=== PATIENT | female | born 1940 | race Caucasian/White ===

== ENCOUNTER 2019-03-28 10:41 | Outpatient (CLI) | payer MEDICARE, BC | END 2019-03-28 10:42 | disposition critical access hospital (66) | LOC: EMS 10:41 | PROVIDERS: ATTEND Surgery | DX: R41.0 Disorientation, unspecified (principal); R42 Dizziness and giddiness; R47.81 Slurred speech | CPT/HCPCS: A0425; A0429 ==

== ENCOUNTER 2019-03-28 11:04 | Observation (INO) | payer MEDICARE, BC ==
[2019-03-28] MEDS ORDERED: SODIUM CHLORIDE 0.9% 1,000 ML IV ONE (11:15)
--- NOTE | 2019-03-28 11:17 | ED Physician Documentation ---
PD HPI FOCAL NEURO - Stated complaint Stated Complaint: STROKE SX - History obtained from History obtained from: Patient, EMS - History of Present Illness Timing - onset: How many hours ago (2 1/2), Today (at about 8:30-8:45 am. [place] okay when first got out of bed. She noticed the development of trouble speaking along with feeling off balance and listing to the right. She did not notice any facial droop or one-sided weakness. She did not have any headache or chest pain. She is visiting from [facility] to stay with a friend of hers who just had hip surgery. Her friend noted that she was having some nonsensical speech. This actually lasted for a couple of hours until some other friends came by and felt that she should seek medical attention. EMS came and did notice her listing to one side sitting but did not have focal weakness. She did have some aphasic type speech that was only mild at the time of their arrival and improved on route to the hospital. So duration of symptoms was approximately 2 hours.) Timing - details: Abrupt onset (She states she felt okay on awakening this morning. She was helping take care of her friend who is just come out from hip surgery. She did not sleep well last night. She states she had a couple coffee this morning with a little bit of [employer] [place] cream in it. She did not feel that she had a significant amount of alcohol. She had the onset of trouble s peaking and balance. She denied any headache or chest pain with it.), Now resolved (resolved enroute to ER.) Severity of deficit: Moderate Weakness: No: Face, Arm, Leg Numbness: No: Face, Arm, Leg Associated symptoms: No: Headache, Nausea / vomiting, Head injury Contributing factors: negative: Anticoagulated, Atrial fibrillation Baseline status: positive: A&OX3, ambulatory, indep Similar symptoms before: Has not had sx before Recently seen: Not recently seen Review of Systems Constitutional: denies: Fever, Chills Nose: denies: Rhinorrhea / runny nose, Congestion Throat: denies: Sore throat Cardiac: denies: Chest pain / pressure, Palpitations Respiratory: denies: Dyspnea, Cough GI: denies: Nausea, Vomiting, Diarrhea Musculoskeletal: denies: Neck pain, Back pain Neurologic: reports: Difficulty speaking, Confused. denies: Focal weakness, Numbness, Near syncope, Syncope, Headache, Head injury Psychiatric: denies: Anxiety Endocrine: denies: Easy bruising / bleeding Immunocompromised: denies: Immunocompromised PD PAST MEDICAL HISTORY - Past Medical History Cardiovascular: Hypertension Respiratory: None Neuro: None, Peripheral neuropathy Endocrine/Autoimmune: None - Present Medications Home Medications: Ambulatory Orders Medication Instructions Recorded Confirmed Aspirin 81 mg PO DAILY 03/28/19 03/28/19 Gabapentin 0 mg DAILY 03/28/19 03/28/19 Metoprolol Tartrate 0 mg BID 03/28/19 03/28/19 Pramipexole [Mirapex] 0 mg DAILY 03/28/19 03/28/19 Simvastatin 0 mg DAILY 03/28/19 03/28/19 - Allergies Allergies/Adverse Reactions: Allergies Allergy/AdvReac Type Severity Reaction Status Date / Time tape Allergy Rash Uncoded 03/28/19 12:03 - Family History Family history: denies: Venous thromboembolism, CVA, Cerebral aneurysm PD ED PE NORMAL - Vitals Vital signs reviewed: Yes - General General: Alert and oriented X 3, No acute distress, Well developed/nourished - HEENT HEENT: Atraumatic, PERRL, EOMI, Moist mucous membranes, Pharynx benign - Neck Neck: Supple, no meningeal sign, No adenopathy, No bruit - Cardiac Cardiac: RRR, No murmur - Respiratory Respiratory: Clear bilaterally - Abdomen Abdomen: Soft, Non tender - Female Female : Deferred - Rectal Rectal: Deferred - Back Back: No CVA TTP - Derm Derm: Normal color, Warm and dry - Extremities Extremities: No tenderness to palpate, Normal ROM s pain, No edema, No calf tenderness / cord - Neuro Neuro: Alert and oriented X 3, No motor deficit, Normal speech Eye Opening: Spontaneous Motor: Obeys Commands Verbal: Oriented GCS Score: 15 NIHSS - Level of Consciousness Level of consciousness: (0) Alert, Keenly responsive LOC Questions: (0) Answers both Q's correct LOC Commands: (0) Performs both correctly - Gaze Best Gaze: (0) Normal - Visual Visual: (0) No loss - Facial Palsy Facial Palsy: (0) Normal, symmetrical movement - Motor Arms (both separate) Motor Arm (right): (0) No drift Motor Arm (left): (0) No drift - Motor Legs (both separate) Motor Leg (right): (0) No drift Motor Leg (left): (0) No drift - Limb Ataxia Limb Ataxia: (0) Absent - Sensory Sensory: (0) Normal - Best Language Best Language: (0) No aphasia - Dysarthria Dysarthria: (0) Normal - Extinction and Inattention (formally neg Extinction and inattention: (0) No abnormality - Total Score/Results Total Score/Result: 0 Results - Vitals Vitals: Vital Signs - 24 hr 03/28/19 03/28/19 11:04 13:24 Heart Rate 73 69 Respiratory 16 18 Rate Blood Pressure 120/62 132/78 H O2 Saturation 96 100 Oxygen O2 Source Room air - EKG (time done) 12:09 Rate: Rate (enter#) (65) Rhythm: NSR [place]: Normal Intervals: Normal MS QRS: Normal Ischemia: Normal ST segments. No: ST elevation c/w ischemia, ST depression - Labs Labs: Laboratory Tests 03/28/19 03/28/19 03/28/19 11:14 11:14 11:14 WBC 5.3 RBC 3.83 L Hgb 12.3 Hct 37.5 MCV 97.9 MCH 32.1 H MCHC 32.8 RDW 12.6 Plt Count 229 MPV 10.3 Neut # (Auto) 3.9 Lymph # (Auto) 0.7 L [place] # (Auto) 0.6 Eos # (Auto) 0.1 Baso # (Auto) 0.1 Absolute Nucleated RBC 0.00 Nucleated RBC % 0.0 Sodium 139 Potassium 3.8 Chloride 99 L Carbon Dioxide 28 Anion Gap 12.0 BUN 36 H Creatinine 1.3 H Estimated GFR (MDRD) 40 L Glucose 155 H Calcium 9.2 Magnesium 2.4 Total Bilirubin 0.7 AST 26 ALT 17 Alkaline Phosphatase 83 Troponin I High Sens 11.3 Total Protein 7.1 Albumin 3.9 Globulin 3.2 Albumin/Globulin Ratio 1.2 Triglycerides Cholesterol LDL Cholesterol, Calc VLDL Cholesterol HDL Cholesterol LDL/HDL Ratio Cholesterol/HDL Ratio Lipase 44 Ethyl Alcohol < 5.0 03/28/19 11:14 WBC RBC Hgb Hct MCV MCH MCHC RDW Plt Count MPV Neut # (Auto) Lymph # (Auto) [place] # (Auto) Eos # (Auto) Baso # (Auto) Absolute Nucleated RBC Nucleated RBC % Sodium Potassium Chloride Carbon Dioxide Anion Gap BUN Creatinine Estimated GFR (MDRD) Glucose Calcium Magnesium Total Bilirubin AST ALT Alkaline Phosphatase Troponin I High Sens Total Protein Albumin Globulin Albumin/Globulin Ratio Triglycerides 102 Cholesterol 158 LDL Cholesterol, Calc 83 VLDL Cholesterol 20 HDL Cholesterol 55 L LDL/HDL Ratio 1.5 Cholesterol/HDL Ratio 2.9 Lipase Ethyl Alcohol - Rads (name of study) head CT Radiology: Prelim report reviewed, Discussed with rads (normal), See rad report head and neck CT-A Radiology: Prelim report reviewed, Discussed with rads (no blood flow deficits nor significant stenoses. ), See rad report PD MEDICAL DECISION MAKING - ED course Complexity details: reviewed results, re-evaluated patient, considered differential (2 hours of aphasia and ataxia with symptoms resolving on route by EMS. Concern for TIA versus other cerebrovascular disorders versus mass-effect or mimics such as MS. She has a normal sinus rhythm. Will check blood tests as well.), d/w patient, d/w international travel consultant (Hospitalist) Departure - Departure Disposition: ED Place in Observation Clinical Impression: TIA (transient ischemic attack), Aphasia, Ataxia Condition: Stable Record reviewed to determine appropriate education?: Yes
[2019-03-28 11:24] LABS: BASOPHILS # (AUTO) 0.1 10^3/uL (0.0-0.1); BASOPHILS % (AUTO) 1.1 %; EOSINOPHILS # (AUTO) 0.1 10^3/uL (0.0-0.7); EOSINOPHILS % (AUTO) 2.1 %; HGB - HEMOGLOBIN 12.3 g/dL (12.0-16.0); LYMPHOCYTES # (AUTO) 0.7 10^3/uL (1.5-3.5); LYMPHOCYTES % (AUTO) 12.4 %; MEAN CORPUSCULAR HEMOGLOBIN 32.1 pg (27.0-31.0); MEAN CORPUSCULAR HGB CONC 32.8 g/dL (32.0-36.0); MEAN CORPUSCULAR VOLUME 97.9 fL (81.0-99.0); MEAN PLATELET VOLUME 10.3 fL (7.9-10.8); MONOCYTES # (AUTO) 0.6 10^3/uL (0.0-1.0); NEUTROPHILS # (AUTO) 3.9 10^3/uL (1.5-6.6); NEUTROPHILS % (AUTO) 72.2 %; PLT - PLATELET COUNT 229 10^3/uL (130-450); RED BLOOD COUNT 3.83 10^6/uL (4.20-5.40); RED CELL DISTRIBUTION WIDTH 12.6 % (12.0-15.0); WHITE BLOOD COUNT 5.3 x10^3/uL (4.8-10.8)
--- NOTE | 2019-03-28 11:36 | CT Report ---
Reason: slurred speech on set 8:30 am Procedure Date: 03/28/2019 Accession Number: [id number] / [id number] Procedure: CT - Head W/O Stroke Protocol CPT Code: Final Report FULL RESULT: EXAM: CT HEAD EXAM DATE: 03/28/2019 11:25 AM. CLINICAL HISTORY: Slurred speech onset 8:30 am. COMPARISON: None. TECHNIQUE: Multiaxial CT images were obtained from the foramen magnum to the vertex. Reformats: Sagittal and coronal. IV contrast: None. In accordance with CT protocol optimization, one or more of the following dose reduction techniques were utilized for this exam: automated exposure control, adjustment of mA and/or KV based on patient size, or use of iterative reconstructive technique. FINDINGS: Parenchyma: No intraparenchymal hemorrhage. No evidence of mass, midline shift, or CT findings of acute infarction. Vazquez-white differentiation is distinct. Age-related atrophy is seen. Patchy white matter hypodensity is noted throughout the cerebral hemispheres. Extraaxial Spaces: Normal for age. No subdural or epidural collections identified. Ventricles: Mild ventriculomegaly is seen with a colpocephaly pattern. No acute hydrocephalus. No intraventricular hemorrhage. Sinuses and Orbits: Imaged paranasal sinuses, orbits, and mastoids show no significant abnormality. Mild mucosal thickening is seen involving inferior right mastoid air cells. Note is made of bilateral lens removal. Bones: No evidence of fracture or calvarial defect. Other: Mild vascular calcification is seen involving intracranial ICA. IMPRESSION: 1. No acute intracranial abnormality. 2. Senescent change. Age-related volume loss. Patchy white matter hypodensity is noted. This is nonspecific. This can be seen secondary to small vessel ischemic change. 3. Mild ventriculomegaly. Findings may be secondary to central atrophy or normal pressure hydrocephalus. RADIA The critical test notification system was initiated by Dr. Mannie Calloway at 11:31 AM on 03/28/2019. The above critical test findings were discussed with Dr. Nikhil Irene by Dr. Mannie Calloway at 11:35 AM on 03/28/2019.
[2019-03-28 11:37] LABS: ALBUMIN 3.9 g/dL (3.2-5.5); ALBUMIN/GLOBULIN RATIO 1.2 (1.0-2.2); ALKALINE PHOSPHATASE 83 IU/L (42-121); ALT ALANINE AMINOTRANSFERASE 17 IU/L (10-60); AST ASPARTATE AMINOTRANSFERASE 26 IU/L (10-42); BILIRUBIN,TOTAL 0.7 mg/dL (0.2-1.0); BUN - BLOOD UREA NITROGEN 36 mg/dL (6-20); CALCIUM 9.2 mg/dL (8.5-10.3); CARBON DIOXIDE - CO2 28 mmol/L (21-32); CHLORIDE 99 mmol/L (101-111); CREATININE 1.3 mg/dL (0.4-1.0); GFR - MDRD 40 (>89); GLUCOSE 155 mg/dL (70-100); LIPASE 44 U/L (22-51); MAGNESIUM 2.4 mg/dL (1.7-2.8); SODIUM 139 mmol/L (135-145); TOTAL PROTEIN 7.1 g/dL (6.7-8.2)
[2019-03-28] MEDS ORDERED: IOVERSOL 320 100 ML VIAL IVP ONE ×2 (12:00→12:59)
[2019-03-28] MEDS ORDERED: ONDANSETRON 4 MG/2 ML VIAL IVP PRN (13:27)
[2019-03-28] MEDS ORDERED: SODIUM CHLORIDE FLUSH 0.9% 10 ML SYRINGE IVP PRN (13:27)
[2019-03-28] MEDS ORDERED: ACETAMINOPHEN 325 MG TABLET PO PRN (13:27)
--- NOTE | 2019-03-28 13:34 | CT Report ---
Reason: L sided facial droop Procedure Date: 03/28/2019 Accession Number: [id number] / [id number] Procedure: CT - ANGIO HEAD W/WO CPT Code: Final Report FULL RESULT: EXAM: CT ANGIOGRAM HEAD AND NECK. CT SCAN HEAD WITH CONTRAST. EXAM DATE: 03/28/2019 11:43 AM. Images are timed 1137 hours. CLINICAL HISTORY: L sided facial droop. COMPARISON: HEAD W/O STROKE PROTOCOL 03/28/2019 11:25 AM. TECHNIQUE: Routine axial helical CTA imaging was performed from the aortic arch through the [place] of [place]. Routine axial CT imaging of the head was performed following contrast administration. Reconstructions: Routine multiplanar 3D MIP reconstructions. IV contrast: OPTI 320 80 mL. NASCET Criteria are used for stenosis measurements. In accordance with CT protocol optimization, one or more of the following dose reduction techniques were utilized for this exam: automated exposure control, adjustment of mA and/or KV based on patient size, or use of iterative reconstructive technique. FINDINGS: CT SCAN HEAD POSTCONTRAST: (See report of noncontrast CT scan of the head performed same time.) No abnormal intracranial enhancement. CT ANGIOGRAM EXTRACRANIAL CIRCULATION: Mild tortuosity with moderate atherosclerotic calcification is seen involving the aortic arch and great vessels off the arch. Normal three-vessel branching is seen. The great vessels are patent. Mild, 40%, stenosis is seen at the origin of the left subclavian artery. Right Carotid: The common carotid, internal carotid, and external carotid arteries are widely patent. No dissection. Mild intimal thickening is seen at the CCA bifurcation. Atherosclerotic calcification is seen in the distal bulbar segment of the ICA. Moderate, 60%, stenosis. Left Carotid: The common carotid, internal carotid, and external carotid arteries are widely patent. No dissection. Mild atherosclerotic intimal thickening and calcification is seen at the CCA bifurcation. No stenosis. Vertebrals: The vertebral arteries are codominant. The vertebrobasilar system shows no stenosis, dissection, aneurysm, or significant atherosclerotic disease. CT ANGIOGRAM INTRACRANIAL CIRCULATION: Unremarkable. No stenoses or aneurysms of the visualized vessels. No large vessel occlusion. Tortuosity and atherosclerotic calcification is seen involving the cavernous and proximal supracavernous ICA. No significant stenosis. Bilateral P-COM are patent, larger on the left. Partial origin of the left MANA[employer]ED SERVICES SALES CONSULTANT is seen with hypoplastic left P1 segment. The right A1 segment is dominant primarily supplying bilateral KYARA through a patent A-comm. 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 The dural venous sinuses are patent. Other: The visualized bones, soft tissues, and lung apices are unremarkable. Moderate dextroscoliosis is seen centered in the upper thoracic spine. [place] is at a T3 vertebral segmentation abnormality. 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 Moderate spondylosis is seen throughout the cervical spine. IMPRESSION: CT SCAN HEAD POSTCONTRAST: (See report of noncontrast CT scan of the head performed same time.) 1. No abnormal intracranial enhancement. CT ANGIOGRAM NECK: 1. Moderate atherosclerotic change at the aortic arch and great vessels off the arch. Mild, 40%, stenosis is seen in the proximal left subclavian artery. 2. Right carotid circulation: Atherosclerotic calcification is seen in the distal bulbar segment of the ICA. Moderate, 60%, stenosis. 3. Left carotid circulation: Patent and unremarkable. 4. Bilateral vertebral arteries: Patent and unremarkable. CT ANGIOGRAM HEAD: 1. Unremarkable CTA of the head. No aneurysm. No significant stenosis. No large vessel occlusion. 2. Partial origin of left MANAGED SERVICES SALES CONSULTANT is noted. 3. The right A1 segment is dominant. RADIA The call report notification system was initiated by Dr. Mannie Calloway at 12:08 PM on 03/28/2019. The above call report findings were discussed with Dr. Nikhil Irene by Dr. Mannie Calloway at 12:10 PM on 03/28/2019.
--- NOTE | 2019-03-28 13:34 | CT Report ---
Reason: L sided facial droop, L neck pain Procedure Date: 03/28/2019 Accession Number: [id number] / [id number] Procedure: CT - ANGIO NECK W CPT Code: Final Report FULL RESULT: EXAM: CT ANGIOGRAM HEAD AND NECK. CT SCAN HEAD WITH CONTRAST. EXAM DATE: 03/28/2019 11:43 AM. Images are timed 1137 hours. CLINICAL HISTORY: L sided facial droop. COMPARISON: HEAD W/O STROKE PROTOCOL 03/28/2019 11:25 AM. TECHNIQUE: Routine axial helical CTA imaging was performed from the aortic arch through the [place] of [place]. Routine axial CT imaging of the head was performed following contrast administration. Reconstructions: Routine multiplanar 3D MIP reconstructions. IV contrast: OPTI 320 80 mL. NASCET Criteria are used for stenosis measurements. In accordance with CT protocol optimization, one or more of the following dose reduction techniques were utilized for this exam: automated exposure control, adjustment of mA and/or KV based on patient size, or use of iterative reconstructive technique. FINDINGS: CT SCAN HEAD POSTCONTRAST: (See report of noncontrast CT scan of the head performed same time.) No abnormal intracranial enhancement. CT ANGIOGRAM EXTRACRANIAL CIRCULATION: Mild tortuosity with moderate atherosclerotic calcification is seen involving the aortic arch and great vessels off the arch. Normal three-vessel branching is seen. The great vessels are patent. Mild, 40%, stenosis is seen at the origin of the left subclavian artery. Right Carotid: The common carotid, internal carotid, and external carotid arteries are widely patent. No dissection. Mild intimal thickening is seen at the CCA bifurcation. Atherosclerotic calcification is seen in the distal bulbar segment of the ICA. Moderate, 60%, stenosis. Left Carotid: The common carotid, internal carotid, and external carotid arteries are widely patent. No dissection. Mild atherosclerotic intimal thickening and calcification is seen at the CCA bifurcation. No stenosis. Vertebrals: The vertebral arteries are codominant. The vertebrobasilar system shows no stenosis, dissection, aneurysm, or significant atherosclerotic disease. CT ANGIOGRAM INTRACRANIAL CIRCULATION: Unremarkable. No stenoses or aneurysms of the visualized vessels. No large vessel occlusion. Tortuosity and atherosclerotic calcification is seen involving the cavernous and proximal supracavernous ICA. No significant stenosis. Bilateral P-COM are patent, larger on the left. Partial origin of the left [employer] SALES is seen with hypoplastic left P1 segment. The right A1 segment is dominant primarily supplying bilateral KYARA through a patent A-comm. 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 The dural venous sinuses are patent. Other: The visualized bones, soft tissues, and lung apices are unremarkable. Moderate dextroscoliosis is seen centered in the upper thoracic spine. [place] is at a T3 vertebral segmentation abnormality. 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 Moderate spondylosis is seen throughout the cervical spine. IMPRESSION: CT SCAN HEAD POSTCONTRAST: (See report of noncontrast CT scan of the head performed same time.) 1. No abnormal intracranial enhancement. CT ANGIOGRAM NECK: 1. Moderate atherosclerotic change at the aortic arch and great vessels off the arch. Mild, 40%, stenosis is seen in the proximal left subclavian artery. 2. Right carotid circulation: Atherosclerotic calcification is seen in the distal bulbar segment of the ICA. Moderate, 60%, stenosis. 3. Left carotid circulation: Patent and unremarkable. 4. Bilateral vertebral arteries: Patent and unremarkable. CT ANGIOGRAM HEAD: 1. Unremarkable CTA of the head. No aneurysm. No significant stenosis. No large vessel occlusion. 2. Partial origin of left [employer] is noted. 3. The right A1 segment is dominant. RADIA The call report notification system was initiated by Dr. Mannie Calloway at 12:08 PM on 03/28/2019. The above call report findings were discussed with Dr. Nikhil Irene by Dr. Mannie Calloway at 12:10 PM on 03/28/2019.
[2019-03-28] MEDS ORDERED: ASPIRIN CHEW 81 MG TABLET PO STA (13:37)
[2019-03-28 13:59] LABS: CHOL/HDL RATIO 2.9 (<4.4); CHOLESTEROL 158 mg/dL; HDL CHOLESTEROL 55 mg/dL; LDL CHOLESTEROL,CALCULATED 83 mg/dL; LDL/HDL RATIO 1.5 (<4.4); VLDL CHOLESTEROL 20 mg/dL
[2019-03-28] MEDS ORDERED: ASPIRIN 325 MG TABLET PO SCH (14:00)
[2019-03-28] MEDS ORDERED: LORazepam 2 MG/ML VIAL IVP STA (14:22)
--- NOTE | 2019-03-28 15:17 | HISTORY & PHYSICAL EXAMINATION ---
Chief Complaint - Chief Complaint Chief Complaint: trouble speaking and balance History of Present Illness - History of Present Illness HPI Comment/Other: Ms. Dykes is 78-yrs-old female with a PMH significant for HTN, peripheral neuropathy, who present ER complain of trouble speaking and balance. pt report around 8:30am, when she got out of bed, She recognized she had trouble speaking along with feeling off balance, and learning to the right side. She denies headache, vision change, facial droop, sided weakness, or other focal neurological deficits. She report Her friend noticed she had some nonsensical speech, and asked she should seek medical attention. EMS came and pt did not present focal weakness by ER note. pt had mild slurred speech in ER when she was arrival, then she improved as her baseline. Upper my examination, pt has no slurred speech, no focal neurological deficits. She denies sided weakness. CT of head is unremarkable. Route lab test reveals creatinine 1.3 otherwise is unremarkable. pt is admitted for TIA. History - Past Medical History Cardiovascular: reports: Hypertension Respiratory: reports: None Neuro: reports: None, Peripheral neuropathy Endocrine/Autoimmune: reports: None Other Past Medical History: restless legs - Past Surgical History Ortho: reports: Arthroscopic surgery /STEVEDORE DOCK: reports: section - Family & Social History Family History: Mother: Alive and Well, CAD, Father: Alive and Well, CAD Family History Comment/Other: pt report her father at age 85 from heart attack, her mother at age 82 from heart issue as well. she had three children. she is living at [facility] now. Living arrangement: At home Living Situation: With family Social History Notes: pt denies smoking, alcohol and drug issue. 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 - POLST POLST Status: DNR Meds/Allgy - Home Medications Home Medications: Ambulatory Orders Medication Instructions Recorded Confirmed Aspirin 81 mg PO DAILY 03/28/19 03/28/19 Gabapentin 0 mg DAILY 03/28/19 03/28/19 Metoprolol Tartrate 0 mg BID 03/28/19 03/28/19 Pramipexole [Mirapex] 0 mg DAILY 03/28/19 03/28/19 Simvastatin 0 mg DAILY 03/28/19 03/28/19 - Allergies Allergies/Adverse Reactions: Allergies Allergy/AdvReac Type Severity Reaction Status Date / Time adhesive tape Allergy Rash Verified 03/28/19 16:27 Review of Systems - Constitutional Constitutional: denies: Fatigue, Fever, Chills, Malaise, Weakness, Poor a ppetite, Diaphoresis, Night sweats - Eyes Eyes: denies: Pain, Irritation, Amaurosis, Blurred vision, Spots in vision, Field loss, Vision loss, Dipolpia - Ears, Nose & Throat Ears, Nose & Throat: denies: Ear pain, Hearing loss, Tinnitus, Vertigo, Nasal discharge, Nosebleeds, Nasal obstruction, Nasal congestion, Sore throat, Hoarseness, Mouth lesions, Bleeding gums - Cardiovascular Cariovascular: denies: Irregular heart rate, Palpitations, Chest pain, Edema, Lightheadedness, Syncope, Exertional dyspnea, Decr. exercise tolerance - Respiratory Respiratory: denies: Cough, Sputum production, Wheezing, Snoring, Hemoptysis, Orthopnea, SOB at rest, SOB with exertion - Gastrointestinal Gastrointestinal: denies: Abdominal pain, Abdominal distention, Constipation, Diarrhea, Change in bowel habits, Rectal bleeding, Black stools, Bloody stools, Nausea, Vomiting, Coffee grounds emesis, Reflux/heartburn - Genitourinary Genitourinary: denies: Dysuria, Frequency, Urgency, Hematuria, Incontinence, Flank pain, Nocturia, Urethral discharge - Musculoskeletal Musculoskeletal: denies: Muscle pain, Back pain, Muscle aches, Stiffness, Limited range of motion, Muscle weakness, Gout, Joint pain - Integumentary Integumentary: denies: Rash, Pruritis, Lesions, Dryness, Lumps, Acne, Pigment changes, Nail changes - Neurological Neurological: reports: Abnormal gait, Slurred speech. denies: General weakness, Focal weakness, Headache, Dizziness, Numbness, Memory problems, Pre-existing deficit, Seizures, Incoordination - Psychiatric Psychiatric: denies: Depression, Anxiety, Suicidal, Delusions, Hallucinations, Homicidal - Endocrine Endocrine: denies: Polyuria, Polydypsia, Polyphagia, Intolerance to cold - Hematologic/Lymphatic Hematologic/Lymphatic: denies: Anemia, Bruising, Petechiae, Blood clots, Lymphadenopathy, Bleeding tendencies Exam - Vital Signs Vital Signs: Vital Signs x48h Temp Pulse Resp BP Pulse Ox 03/28/19 14:30 73 18 113/90 H 100 03/28/19 14:00 76 18 128/68 16 L 03/28/19 13:24 69 18 132/78 H 100 03/28/19 13:00 71 18 102/82 H 100 03/28/19 12:00 36.8 C 67 16 103/74 98 03/28/19 11:45 69 16 121/58 L 95 03/28/19 11:04 73 16 120/62 96 - Physical Exam General Appearance: positive: No acute distress, Alert. negative: Lethargic Eyes Bilateral: positive: Normal inspection, PERRL. negative: No lid in flammation ENT: positive: ENT inspection nml, Pharynx nml, No signs of dehydration. negative: Purulent nasal drainage Neck: positive: Nml inspection, Thyroid nml, No JVD, Trachea midline. negative: Thyromegaly, Lymphadenopathy (R), Lymphadenopathy (L), Stiff neck, Tracheal deviation Respiratory: positive: Chest non-tender, No respiratory distress, Breath sounds nml. negative: Wheezes, Rales, Rhonchi Cardiovascular: positive: Regular rate & rhythm, Systolic murmur. negative: Irregularly irregular, Extrasystoles, Tachycardia, Bradycardia, JVD present, Diastolic murmur Peripheral Pulses: positive: 2+ Abdomen: positive: Non-tender, No organomegaly, Nml bowel sounds, No distention. negative: Tenderness, Guarding, Rebound Back: positive: Nml inspection. negative: CVA tenderness (R), CVA tenderness (L) Skin: positive: Color nml, No rash, Warm, Dry. negative: Cyanosis, Diaphoresis, Pallor Extremities: positive: Non-tender, Full ROM, Nml appearance. negative: Calf tenderness, Yani's sign/cords Neurologic/Psychiatric: positive: Oriented x3, Motor nml, Sensation nml. negative: Weakness, Sensory loss, Facial droop, Slurred/abnml speech, Depressed mood/affect Sepsis Event Note (H) - Evaluation Current Stage of Sepsis: Ruled out Conclusion/Plan - Problem List (1) TIA (transient ischemic attack) Conclusion/Plan: pt report she had slurred speech and lean at right side. Now her symptoms r esolved. pt has no sided weakness. CT of head is unremarkable order MRI, CT angio of head and neck is pending order ECHO start aspirin, start lipitor, lipid panel test is pending. (2) HTN (hypertension) Conclusion/Plan: stable, hold home BP meds now. (3) Peripheral neuropathy Conclusion/Plan: start home meds gabapentin (4) Do not intubate, cardiopulmonary resuscitation (CPR)-only code status Conclusion/Plan: pt request DNR/DNI - Lab Results Fish Bones: 03/28/19 11:14 03/28/19 11:14 Core Measures - Anticipated LOS I expect patient to be DC'd or transferred within 96 hours.: Yes - DVT/VTE - Prophylaxis VTE/DVT Device ordered at admit?: Yes VTE/DVT Prophylaxis med ordered at admit?: Yes
--- NOTE | 2019-03-28 16:26 | MRI Report ---
Reason: TIA Procedure Date: 03/28/2019 Accession Number: [id number] / [id number] Procedure: MRI - Brain W/O CPT Code: Final Report FULL RESULT: EXAM: MRI BRAIN WITHOUT CONTRAST EXAM DATE: 03/28/2019 03:54 PM. CLINICAL HISTORY: TIA, left facial droop, left neck pain. COMPARISON: HEAD ANGIO 03/28/2019 11:37 AM. TECHNIQUE: Multiplanar, multisequence T1-weighted and fluid-sensitive MR sequences of the brain were performed. Sequences optimized for routine evaluation. Other: None. IV Contrast: None. FINDINGS: Detail mildly compromised by motion. Parenchyma/Dura: No mass, acute infarct or hemorrhage. There are scattered areas of increased T2 signal involving the white matter of bilateral cerebral hemispheres. Ventricles/Cisterns: There is moderate enlargement of lateral ventricles. There is no mass-effect. No midline shift. No abnormal extra-axial fluid collection or hemorrhage. Orbits: Symmetric and unremarkable. Sella Turcica: Unremarkable. IAC: Symmetric and unremarkable. Vasculature: Normal signal flow void is seen in the major arterial structures at the skull base. Sinuses: No acute appearing sinus disease. Bones: No focal pathologic appearing marrow signal changes. Other: None. IMPRESSION: 1. No evidence of acute infarct. 2. Mild microvascular white matter disease. 3. Moderate diffuse volume loss. RADIA
[2019-03-28] MEDS: SODIUM CHLORIDE 0.9% 1,000 ML IV SCH (16:48)
[2019-03-28] MEDS: SODIUM CHLORIDE FLUSH 0.9% 10 ML SYRINGE IVP SCH (16:48)
[2019-03-28] MEDS ORDERED: ZOLPIDEM 5 MG TABLET PO PRN ×2 (17:31→17:39)
[2019-03-28 18:39] LABS: MUDS CUTOFF CONCENTRATIONS CUTOFF CONC BELOW:
[2019-03-28 18:42] LABS: BILIRUBIN,URINE NEGATIVE (NEGATIVE); GLUCOSE, URINE (UA) NEGATIVE (NEGATIVE); KETONES,URINE (UA) NEGATIVE (NEGATIVE); LEUKOCYTE ESTERASE, URINE NEGATIVE (NEGATIVE); NITRITE,URINE NEGATIVE (NEGATIVE); OCCULT BLOOD,URINE NEGATIVE (NEGATIVE); PH,URINE 6.5 PH (5.0-7.5); PROTEIN,URINE NEGATIVE (NEGATIVE); UROBILINOGEN,URINE 0.2 (NORMAL) E.U./dL (NORMAL)
[2019-03-28 18:45] LABS: CLARITY,URINE CLEAR (CLEAR)
[2019-03-28 18:52] LABS: AMPHETAMINE SCREEN,URINE NEGATIVE (NEGATIVE); BENZODIAZEPINES SCREEN, URINE NEGATIVE (NEGATIVE); COCAINE SCREEN URINE NEGATIVE (NEGATIVE); METHADONE SCREEN, URINE NEGATIVE (NEGATIVE); METHAMPHETAMINES SCREEN, URINE NEGATIVE (NEGATIVE); OPIATE SCREEN, URINE NEGATIVE (NEGATIVE); OXYCODONE SCREEN, URINE NEGATIVE (NEGATIVE); PROPOXYPHENE SCREEN, URINE NEGATIVE (NEGATIVE); TRICYCLIC ANTIDEPRESSANT,URINE NEGATIVE (NEGATIVE)
[2019-03-28] MEDS ORDERED: ATORVASTATIN 40 MG TABLET PO SCH (21:00)
[2019-03-28] MEDS: GABAPENTIN 100 MG CAPSULE PO SCH (21:41)
[2019-03-28] MEDS: FAMOTIDINE 20 MG TABLET PO SCH (21:41)
[2019-03-29] MEDS: SODIUM CHLORIDE FLUSH 0.9% 10 ML SYRINGE IVP SCH ×2 (03:05→08:24)
[2019-03-29] MEDS: SODIUM CHLORIDE 0.9% 1,000 ML IV SCH (04:46)
[2019-03-29 05:39] LABS: BASOPHILS % (AUTO) 1.8 %; EOSINOPHILS % (AUTO) 5.8 %; HGB - HEMOGLOBIN 11.2 g/dL (12.0-16.0); LYMPHOCYTES % (AUTO) 21.6 %; MEAN CORPUSCULAR HEMOGLOBIN 31.5 pg (27.0-31.0); MEAN CORPUSCULAR HGB CONC 32.5 g/dL (32.0-36.0); MEAN CORPUSCULAR VOLUME 97.2 fL (81.0-99.0); MEAN PLATELET VOLUME 10.4 fL (7.9-10.8); MONOCYTES % (AUTO) 16.2 %; NEUTROPHILS % (AUTO) 54.6 %; PLT - PLATELET COUNT 200 10^3/uL (130-450); RED BLOOD COUNT 3.55 10^6/uL (4.20-5.40); RED CELL DISTRIBUTION WIDTH 12.7 % (12.0-15.0); WHITE BLOOD COUNT 2.8 x10^3/uL (4.8-10.8)
[2019-03-29 05:48] LABS: CALCIUM 8.4 mg/dL (8.5-10.3); MAGNESIUM 2.4 mg/dL (1.7-2.8)
[2019-03-29 05:51] LABS: ABNORMAL LYMPHS % (MANUAL) 0 %; BAND NEUTROPHILS % (MANUAL) 0 %
[2019-03-29 06:18] LABS: BASOPHILS # (MANUAL) 0.1 10^3/uL (0-0.1); BASOPHILS % (MANUAL) 2 %; DIFFERENTIAL COMMENT MANUAL DIFFERENTIAL; EOSINOPHILS # (MANUAL) 0.1 10^3/uL (0-0.7); LYMPHOCYTES # (MANUAL) 0.8 10^3/uL (1.5-3.5); LYMPHOCYTES % (MANUAL) 29 %; MONOCYTES # (MANUAL) 0.4 10^3/uL (0.0-1.0); PLATELET ESTIMATE, MANUAL NORMAL (130-450,000) (NORMAL); RBC MORPHOLOGY (MULTIPLE) NORMAL APPEARANCE (NORMAL)
[2019-03-29] MEDS: GABAPENTIN 100 MG CAPSULE PO SCH (06:19)
[2019-03-29] MEDS: FAMOTIDINE 20 MG TABLET PO SCH (08:21)
[2019-03-29] MEDS ORDERED: ASPIRIN CHEW 81 MG TABLET PO SCH (09:00)
[2019-03-29] MEDS ORDERED: GABAPENTIN 100 MG CAPSULE PO SCH (09:00)
[2019-03-29] MEDS ORDERED: ENOXAPARIN 40 MG/0.4 ML SYRINGE SUBQ SCH (09:00)
[2019-03-29] MEDS ORDERED: ASPIRIN 325 MG TABLET PO SCH (09:00)
[2019-03-29 09:06] VITALS: BP 134/44
--- NOTE | 2019-03-29 10:23 | Discharge Plan ---
Discharge Plan Problem Reviewed?: Yes Disposition: Home, Self Care Condition: Stable Diet: Regular Activity Restrictions: Activity as Tolerated Shower Restrictions: No (fall precaution) Health Concerns: TIA Plan of Treatment: As we discussed, CTA of neck reveals right carotid moderate stenosis, ECHO study reveals moderate aortic stenosis . your symptoms are completely resolved. you may continue to followup your PCP, vascular surgeon and your waxing machine operator helper as out-pt to manage your medical issue. Care Goals: stabilization and improvement of your medical conditions Assessment: Discussed with you all your image studies, you agree the care plan Additional Instructions or Follow Up instructions: you may followup your PCP in 1-2 weeks, followup waxing machine operator helper and vascular surgeon as out-pt. Should your symptoms return or worsen, you may present ER or call 911 for help. No Smoking: If you smoke, Please STOP! Call for help.
--- NOTE | 2019-03-29 10:51 | DISCHARGE SUMMARY ---
Discharge Summary Admit Date: 03/28/19 Discharge Date: 03/29/19 Discharging Provider: HANNA Condition at Discharge: Stable Discharge Disposition: 01 Home, Self Care Discharge Facility Name: home - DIAGNOSES Admission Diagnoses: (1) TIA (transient ischemic attack) (2) HTN (hypertension) (3) Peripheral neuropathy Discharge Diagnoses with Status of Each Condition: (1) TIA (transient ischemic attack) resolved. pt has no focal neurological deficits. pt has normal speech. pt walks normal without any balance issue. discussed with pt about all her image study, MRI of head reveals unremarkable, CTA of neck reveals right carotid moderate stenosis, ECHO study reveals moderate aortic stenosis otherwise unremarkable. (2) HTN (hypertension) stable (3) Peripheral neuropathy stable - HPI History of Present Illness: Ms. Dykes is 78-yrs-old female with a PMH significant for HTN, peripheral neuropathy, who present ER complain of trouble speaking and balance. pt report around 8:30am, when she got out of bed, She recognized she had trouble speaking along with feeling off balance, and learning to the right side. She denies headache, vision change, facial droop, sided weakness, or other focal neurological deficits. She report Her friend noticed she had some nonsensical speech, and asked she should seek medical attention. EMS came and pt did not present focal weakness by ER note. pt had mild slurred speech in ER when she was arrival, then she improved as her baseline. Upper my examination, pt has no slurred speech, no focal neurological deficits. She denies sided weakness. CT of head is unremarkable. Route lab test reveals creatinine 1.3 otherwise is unremarkable. pt is admitted for TIA. - HOSPITAL COURSE Hospital Course: pt was admitted for TIA. pt report she had slurred speech, and out of balance and lean to right side. after treated in hospital, pt has no focal neurological deficits. pt has normal speech, pt walks without balance issue. MRI of head reveals unremarkable, CTA of neck reveals right carotid moderate stenosis, ECHO study reveals moderate aortic stenosis otherwise unremarkable. pt report her PCP and transportation worker know she have moderate Carotid stenosis and aortic stenosis medical conditions. the detail hospital course is as the following: (1) TIA (transient ischemic attack) resolved. pt has no focal neurological deficits. pt has normal speech. pt walks normal without any balance issue. discussed with pt about all her image study, MRI of head reveals unremarkable, CTA of neck reveals right carotid moderate stenosis, ECHO study reveals moderate aortic stenosis otherwise unremarkable. (2) HTN (hypertension) stable (3) Peripheral neuropathy stable - ALLERGIES Allergies/Adverse Reactions: Allergies Allergy/AdvReac Type Severity Reaction Status Date / Time adhesive tape Allergy Rash Verified 03/28/19 16:27 - MEDICATIONS Home Medications: Ambulatory Orders Medication Instructions Recorded Confirmed Aspirin 81 mg PO DAILY 03/28/19 03/28/19 Gabapentin 0 mg DAILY 03/28/19 03/28/19 Metoprolol Tartrate 0 mg BID 03/28/19 03/28/19 Pramipexole [Mirapex] 0 mg DAILY 03/28/19 03/28/19 Simvastatin 0 mg DAILY 03/28/19 03/28/19 Furosemide [Lasix] 40 mg PO DAILY 03/29/19 03/29/19 - PHYSICAL EXAM AT DISCHARGE General Appearance: positive: No acute distress, Alert. negative: Lethargic Eyes Bilateral: positive: Normal inspection, PERRL, No lid inflammation ENT: positive: ENT inspection nml, Pharynx nml, No signs of dehydration. negative: Purulent nasal drainage Neck: positive: Nml inspection, Thyroid nml, No JVD, Trachea midline. negative: Thyromegaly, Lymphadenopathy (R), Lymphadenopathy (L), Stiff neck, Tracheal deviation Respiratory: positive: Chest non-tender, No respiratory distress, Breath sounds nml. negative: Wheezes, Rales, Rhonchi Cardiovascular: positive: Regular rate & rhythm, No murmur, No gallop. negative: Irregularly irregular, Extrasystoles, Tachycardia, Bradycardia, JVD present, Systolic murmur, Diastolic murmur Peripheral Pulses: positive: 2+ Abdomen: positive: Non-tender, No organomegaly, Nml bowel sounds, No distention. negative: Tenderness, Guarding, Rebound Back: positive: Nml inspection. negative: CVA tenderness (R), CVA tenderness (L) Skin: positive: Color nml, No rash, Warm, Dry. negative: Cyanosis, Diaphoresis, Pallor Extremities: positive: Non-tender, Full ROM, Nml appearance. negative: Calf tenderness, Joint swelling, Yani's sign/cords Neurologic/Psychiatric: positive: Oriented x3, Motor nml, Sensation nml, Mood/affect nml. negative: Weakness, Sensory loss, Facial droop, Slurred/abnml speech, Depressed mood/affect - LABS Result Diagrams: 03/29/19 05:20 03/29/19 05:20 - SEPSIS Current Stage of Sepsis: Ruled out - FOLLOW UP Follow Up: As we discussed, CTA of neck reveals right carotid moderate stenosis, ECHO study reveals moderate aortic stenosis . your symptoms are completely resolved. you may continue to followup your PCP, vascular surgeon and your transportation worker as out-pt to manage your medical issue. you may followup your PCP in 1-2 weeks, followup transportation worker and vascular surgeon as out-pt. Should your symptoms return or worsen, you may present ER or call 911 for help. - TIME SPENT Time Spent in Discharge (Minutes): 45
[2019-03-29] MEDS ORDERED: ATORVASTATIN 10 MG TABLET PO SCH (21:00)
== END 2019-03-29 12:20 | disposition home or self-care (01) ==
LOC: ED 11:04 → MS2 13:27
PROVIDERS: ADMIT Nurse Practitioner Gerontology; ATTEND Nurse Practitioner Gerontology
DX: G45.9 Transient cerebral ischemic attack, unspecified (principal); I35.0 Nonrheumatic aortic (valve) stenosis; I10 Essential (primary) hypertension; G62.9 Polyneuropathy, unspecified; Z79.82 Long term (current) use of aspirin; Z79.899 Other long term (current) drug therapy; Z66 Do not resuscitate
CPT/HCPCS: 36415; 70496; 70498; 70551; 80048; 80053; 80061; 81003; 83690; 83735; 84484; 85025; 93005; 93306; 96361; 96372; 96374; 99285; A9270; G0378; J1650; J2060; Q9967; 70450; 80306; 80320; 81001; 83721; 87086